=== PATIENT | male | born 1995 | race Caucasian/White ===

== ENCOUNTER 2019-04-23 13:46 | Emergency (ER) | payer OTHER ==
[2019-04-23 14:49] VITALS: BP 122/66
[2019-04-23 15:53] LABS: Influenza A Molecular POSITIVE (Negative)
--- NOTE | 2019-04-23 16:09 | UC ---
FLU HPI - HPI Summary HPI Summary: Patient is a 24yo male presenting with sore throat, body aches, chest congestion , chills x2 days. Patient states he had night sweats last night. Denies sob and difficulty breathing. Denies n/v. Unsure of fevers. Denies taking anything for symptoms. Decreased appetite but drinking fluids more. - History of Current Complaint Chief Complaint: UCRespiratory Stated Complaint: SORE THROAT,FEVER Hx Obtained From: Patient Pain Intensity: 6 Pain Scale Used: 0-10 Numeric - Allergy/Home Medications Allergies/Adverse Reactions: Allergies Allergy/AdvReac Type Severity Reaction Status Date / Time No Known Allergies Allergy Verified 04/23/19 14:49 PMH/Surg Hx/FS Hx/Imm Hx - Surgical History Surgery Procedure, Year, and Place: 4 shoulder surgeries. oral maxillary - Family History Known Family History: Positive: Non-Contributory - Social History Occupation: Student Lives: Dormitory/Roommates Alcohol Use: Weekly Alcohol Amount: 4 times weekly Substance Use Type: None Smoking Status (MU): Never Smoked Tobacco Review of Systems All Other Systems Reviewed And Are Negative: Yes Constitutional: Positive: Chills, Fatigue ENT: Positive: Sore Throat, Sinus Congestion Respiratory: Positive: Cough. Negative: Shortness Of Breath Cardiovascular: Positive: Negative Gastrointestinal: Positive: Negative Musculoskeletal: Positive: Myalgia Neurological: Positive: Negative Physical Exam - Summary Physical Exam Summary: Vital Signs Reviewed: Yes A+Ox3, no distress, well-appearing Eyes: Conjunctiva Clear ENT: Hearing grossly normal TM x 2 clear, moist, uvula midline, no exudate, + pharyngeal erythema Neck: Positive: Supple Respiratory: Positive: No respiratory distress, No accessory muscle use + CTA throughout no w/r Cardiovascular: RRR nl s1, s2 no m/r Musculoskeletal Exam: MCKEE x 4 without difficulty Neurological: Positive: Alert Psychological: Positive: age appropriate behavior Skin: Positive: no rash, no ecchymosis Vital Signs: Initial Vital Signs Temp 99.9 F 04/23/19 14:43 Pulse 72 04/23/19 14:43 Resp 14 04/23/19 14:43 BP 122/66 04/23/19 14:43 Pulse Ox 98 04/23/19 14:43 Lab Results 04/23/19 04/23/19 Range/Units 15:47 15:49 Influenza A (Rapid) Positive A (Negative) Group A Strep Rapid Negative (Negative) Flu Course/Dx - Course Course Of Treatment: Positive rapid flu A. Rapid strep negative. Educated patient on influenza and tamiflu. Patient prefers to take tamiflu. I provided patient with tamiflu prescription and instructed to continue with symptomatic treatment. Instructed to follow up with new or worsening symptoms. Patient voiced understanding and agreed with treatment plan. - Differential Dx/Diagnosis Provider Diagnosis: Influenza A Discharge ED - Sign-Out/Discharge Documenting (check all that apply): Patient Departure All imaging exams completed and their final reports reviewed: No Studies - Discharge Plan Condition: Stable Disposition: HOME Prescriptions: Oseltamivir CAP* [Tamiflu CAP*] 75 mg PO BID #10 cap Patient Education Materials: Influenza (ED) Referrals: [facility] [Outside] - If Needed Additional Instructions: As discussed, you tested positive for influenza today. Take tamiflu as prescribed. You may continue with motrin and tylenol as directed for fever and pain relief. Get plenty of rest and increase your fluid intake. Follow up with the [facility] if symptoms worsen or do not resolve within 5-7 days. - Billing Disposition and Condition Condition: STABLE Disposition: Home
== END 2019-04-23 16:18 | disposition home or self-care (01) ==
LOC: UCEAST 13:46
DX: J10.1 Influenza due to other identified influenza virus with other respiratory manifestations (principal)
CPT/HCPCS: 87651; 99201; G0463

== ENCOUNTER 2019-06-03 20:51 | Emergency (ER) | payer OTHER ==
--- OUTSIDE RECORDS SUMMARY | 2019-06-03 20:56 | XMS REPORT | Continuity of Care Document ---
:1995 Author Organization [facility] Address [address] [place] [address] Phone Care Team Providers Name Role Phone Del Garcia DO Unavailable Unavailable Allergies, Adverse Reactions, Alerts Substance Reaction Status No Known Allergies Active Medications Medication Instructions Dosage Effective Dates (start - stop) Status Comments No Drug Therapy Prescribed Problems Condition Effective Dates (start - Clinical Status Comments stop) BMI,PEDIATRIC 5% - <85% - Other and unspecified injury to - shoulder and upper arm Nausea alone - Myalgia and myositis, unspecified - Unspecified viral infection - FEVER NOS - Acute upper respiratory - infections of unspecified site Routine or child health - check Need for prophylactic vaccination - and inoculation against viralhepatitis Pre-operative examination, - unspecified NEED FOR PROPHYLACTIC VACCINATION - AND INOCULATION, INFLUENZA Encntr for general adult medical exam w/o abnormal findings Encntr for general adult medical exam w/o abnormal findings Acute pharyngitis, unspecified Streptococcal pharyngitis Cough Pneumonia Encounter for screening for respiratory TB Encntr for general adult medical exam w/o abnormal findings Cough Postnasal drip Encntr for routine child health exam w/o abnormal findings ADHD predominantly inattentive type Encounter for general adult medical exam w abnormal findings Adjustment disorder, unspecified Adjustment disorder, unspecified ROUTIN CHILD HEALTH EXAM Back pain Injury Acute pharyngitis Influenza immunization needed Inoculation against viral disease Need for prophylactic vaccination - and inoculation against other specified single bacterial disease Influenza Vaccine Pain in joint involving shoulder Controlled region Routine infant or child health Routine check Routine or child health Routine check Procedures Procedure Date Brief emotional/behav assmt EVOKED AUDITORY TEST LIMITED IMMUNIZATION ADMIN EACH ADD Td vacc no presv 7 yrs+ im IMMUNIZATION ADMIN Menb-4c vacc 2 dose im ROUTINE VENIPUNCTURE SPECIMEN HANDLING OFFICE-LAB PT-FOCUSED HLTH RISK [facility] PREV VISIT EST AGE 18-39 Inspector Assembly Changed The Dx (codes Or Mapping) Inspector Assembly Made Changes To Modifier EVOKED AUDITORY TEST VISUAL ACUITY SCREEN PT-FOCUSED HLTH RISK [facility] PT-FOCUSED HLTH RISK [facility] PREV VISIT, EST, AGE 18-39 SPECIMEN HANDLING STREP A ASSAY W/OPTIC OFFICE/OUTPATIENT VISIT, EST MED SERV, JO ANN/WKEND/HOLIDAY PT-FOCUSED HLTH RISK [facility] PURE TONE HEARING TEST, AIR VISUAL ACUITY SCREEN PT-FOCUSED HLTH RISK [facility] PREV VISIT, EST, AGE 18-39 OFFICE/OUTPATIENT VISIT, EST PURE TONE HEARING TEST, AIR VISUAL ACUITY SCREEN IMMUNIZATION ADMIN HPV 9 PREV VISIT, EST, AGE 18-39 OFFICE/OUTPATIENT VISIT, EST OFFICE/OUTPATIENT VISIT, EST PURE TONE HEARING TEST, AIR VISUAL ACUITY SCREEN IM ADMIN 1ST/ONLY COMPONENT H PAPILLOMA VACC 3 DOSE IM PREV VISIT, EST, AGE 12-17 OFFICE/OUTPATIENT VISIT, EST STREP A ASSAY W/OPTIC OFFICE/OUTPATIENT VISIT, EST IM ADMIN 1ST/ONLY COMPONENT H [place] VACC 3 DOSE IM IM ADMIN 1ST/ONLY COMPONENT FLU VACCINE 4 VALENT NASAL OFFICE/OUTPATIENT VISIT, EST VISUAL ACUITY SCREEN PURE TONE AUDIOMETRY, AIR PREV VISIT, EST, AGE 12-17 MENINGOCOCCAL VACCINE, SC IM ADMIN 1ST/ONLY COMPONENT FLU VACCINE, NASAL IM ADMIN 1ST/ONLY COMPONENT OFFICE/OUTPATIENT VISIT, EST SPECIMEN HANDLING OFFICE/OUTPATIENT VISIT, EST NON-ROUTINE BL DRAW > 3 YRS STREP A ASSAY W/OPTIC 24 HR STREP CULTURE SPECIMEN HANDLING HEP A VACC, PED/ADOL, 2 DOSE IM ADMIN 1ST/ONLY COMPONENT PURE TONE HEARING TEST, AIR VISUAL ACUITY SCREEN PREV VISIT, EST, AGE 12-17 ROUTINE VENIPUNCTURE URINALYSIS, NONAUTO W/SCOPE OFFICE/OUTPATIENT VISIT, EST MED SERV, JO ANN/WKEND/HOLIDAY FLU VACCINE, NASAL IM ADMIN 1ST/ONLY COMPONENT VISUAL ACUITY SCREEN SPECIMEN HANDLING HEP A VACC, PED/ADOL, 2 DOSE IM ADMIN 1ST/ONLY COMPONENT PURE TONE HEARING TEST, AIR URINALYSIS, NONAUTO W/SCOPE PREV VISIT, EST, AGE 12-17 OFFICE CONSULTATION SPECIMEN HANDLING ROUTINE VENIPUNCTURE Results Test Name Date and Time Measure Units Reference Range Abnormal Flag Status Comments No information Advance Directives Directive Yes / No Effective Date File Name No information Encounters Encounter Practice Location Reason(s) Diagnoses Date Provider Providers Description For Visit Copied on Encounter [facility] Del. [facility] [place] 0 [facility], [address], [address] [place], [place], [address] [id number], [place], [place]. [place], tel:43 [place], [address], [address]40857 [place] tel: [phone] [facility]IT [facility] [place] Referring EST AGE 18-39 Children's Pediatrics general Haeyoung. Provider: Health adult 9 [address] [place] [facility], medical exam Evangelina Gaona Flores K, [address] w/o abnormal [address] [place] findings [address], [address] [place], [address], [place], [address], Suite [place], [place]. 102, [place], [address], tel: [place], [place] 544367 [place], [address]. tel: tel: [phone] PREV VISIT, [facility] Encntr for Flores Referring EST, AGE [facility] general Haeyoung. Provider: 18-39 Health adult 8 531 [facility], medical exam Evangelina Ugaldep, [address] w/o abnormal [address] [place] findings [address], [address], [address] [place], [place] [address], [place], [address], [place], [place], [address]. [place], [address], tel: tel: [place] [phone] tel:[phone] OFFICE/OUTPAT [facility] Acute Shurp Referring IENT VISIT, [facility] pharyngitis, Vero. Provider: EST Health unspecifiedS 7 130 [facility] Vero Physicians, treptococcal Street, [place], [address] pharyngitisC [place] [address] [place] oughPneumoni [place], [place], Street, [address] aEncounter [address], [place]. [place] [address], for tel:+ Meri [place], screening 115645 [place], [address]. [place], [address], for tel:+ [place] respiratory [phone] tel: [phone] PREV VISIT, Mentcle [place] Encntr for Shurp Referring EST, AGE [facility] general 1- Vero. Provider: 18-39 Health adult 7 130 [facility], medical exam [facility], [address] w/o abnormal [place] findings [place], [place], [place], [facility] [address], [place]. [place] [address], tel: Meri [place], [id number] [place], [address]. [place], [address], tel: [place] [phone] tel:[phone] OFFICE/OUTPAT [place] CoughPostnas Shurp Referring IENT VISIT, [facility] al drip Vero. Provider: [facility] Health 7 130 [facility]icians, [facility], [address] [place], [place], [place], [address] [address], [place]. [place] [address], tel: Meri [place], 714401 [place], [address]. [place], [address], tel:[phone] tel:[phone] PREV VISIT, [place]cle [place] Encntr for Shurp Referring EST, AGE [facility] routine - Vero. Provider: 18-39 [facility] child health 6 130 [facility]icians, exam w/o [facility], [address] abnormal [place] findingsADHD [place], [place], [address], [address] [facility] [address], [place]. [place] [address], y tel:+42 Meri [place], inattent[place] [phone] [place], [address]. [place], [address], typeEncounte tel: [place] r for [phone] tel: general [phone] adult medical exam w abnormal findings [facility] Referring IENT VISIT, Children's l Pediatrics disorder, Del. 503 Provider : EST Health At [place] unspecified 6 [facility], [address], [place], 40 [facility], [facility], 280 [facility], [facility] [id number], [place] [address], [place]. [place]. [address] [place], tel: [facility], [address], [address]562 Pediatrics [place] , tel: [place], [address] [place], [address]. tel:[phone] OFFICE/OUTPAT [facility] Adjustment [facility] Referring IENT VISIT, Children's l Pediatrics disorder, Del. 503 Provider : EST Health At [place] unspecified 6 [facility] [place], [address], ur, 130 40 [facility], [facility], [facility], [place], [facility] [id number], [place] On [facility] [address], [place]. Meri [place], tel:+43 [place], [address]. [place], [address], [address]177 tel: [place] [phone] tel: [phone] PREV VISIT, [facility] ROUTIN CHILD Audi Referring EST, AGE [facility] HEALTH [place]. 280 Provider: 12-17 Health EXAMPain in 5 [place] [facility], joint [place], [address] [facility] [address] [place]. [address] [place] [address], [facility] regionBMI,PE [facility] [address], DIATRIC 5% - Pediatrics, [place]. 303 [place], <85% [place], [address], [place], [address], Pediatrics [place]. , tel: tel:44 [place], [address] [place], [address]. tel:[phone] OFFICE/OUTPAT [place] Back Mar- Shurp IENT VISIT, [facility] painInjury 9-201 Vero. [facility] 5 130 [facility] Physicians, [place], [address] [place] [facility], [place], [address] [address], [place]. [place], tel:+42 [place], 586917 [place], [address], [place] tel:[phone] OFFICE/OUTPAT [place] Acute Jan-2 Huntley IENT VISIT, [facility] pharyngitis 6-201 [place]. 280 [facility] 4 [facility] 40 [facility]. [facility] 303, [address] [facility] [address], Pediatrics, [place], [place], [address], [place], [address], [place]. tel:[phone] tel:[phone] OFFICE/OUTPAT [place]cle [place] Influenza Nov-0 Shurp IENT VISIT, [facility] immunization 4-201 Vero. [facility] neededInocul 4 130 [facility] Physicians, [facility], [address] against [place], [place], [address] disease [address], [place]. [facility] [address], tel:+42 [place], 796398 [place], [address], [place] tel:[phone] PREV VISIT, Chase [place] Routine May- [facility], [facility] Children[facility] Pediatrics infant or 7-201 12-17 [facility] 4 Physicians, [facility] [address] or [facility] child health [place] dispensary checkNeed [facility] [address], for [place], [place], [address], vaccination [place] and tel:[phone] inoculation [phone] against other specified single bacterial disease [place]cle [place] Influenza Oct-1 [place] [facility] Vaccine 6-[address] [place] [address] 3 [facility] Physicians, [place], [address] [place] [facility] [place], [place], [address] [address], [place]. [place] [address], tel:+42 [place], 796735 [place], [address], [place] tel:[phone] Mentcle [place] Oct-0 [place] [facility] 4-[address] [place] [address] 3 [place] [facility], [place] 40 [facility] [place]. [place] [address], [address] [place] [address], Pediatrics, [place], [place], [address], [place], [address], [place]. tel:[phone] tel:[phone] OFFICE/OUTPAT [place]cle [place] Other and Oct- [place] IENT VISIT, [facility] unspecified 8-201 Shelia. 130 [facility] Health injury to 3 [place] [facility]icians, shoulder and Street, [address] upper [place] [facility] armPre-opera [place], [place], [place] tive [address], [place]. [address], examination, tel:+ [place], unspecified 844543 [place], [address], [place] tel:+ [phone] OFFICE/OUTPAT [place] Nausea Aug-0 Kristen IENT VISIT, [facility] aloneMyalgia 1-201 Afshan. [facility] Health and 3 [address] [place] [facility], myositis, Street, [address] unspecifiedU [place] [facility] nspecified [place], [place], [address] viral [address]. [address], infectionFEV tel:+ [place], [place] N[place] 512137 [place], [address], [place] tel:[phone] PREV VISIT, [facility] Routine Apr- Beniyaminov EST, AGE [facility] or 2-201 Charlene. 4350 12-17 Health child health 3 [place] [facility], checkNeed Naplest [address] for [facility], [facility] prophylactic [place], [place], [address] vaccination [address], [place]. [address], and tel:+82 [place], inoculation 658319 [place], [address], against [place] viralhepatit tel:[phone] is [phone] OFFICE/OUTPAT [place] Acute upper Dec-0 Kristen IENT VISIT, [facility] respiratory 6-201 Afhsan. [facility] Health infections 2 130 [place] [facility], of Street, [address] unspecified [place] site [place], [place], [address] [address]. [address], tel:+42 [place], 368964 [place], [address], [place] tel:[phone] [facility] NEED FOR Dec-0 [place] [facility] PROPHYLACTIC 4-201 Shelia. 130 Health VACCINATION 2 [facility] Physicians, AND [place], [address] [facility] On [place] INFLUENZA [place], [place], [address] [address], [place]. [facility] [address], tel:+42 [place], 953672 [place], [address], [place] tel:[phone] PREV VISIT, [facility] b-1 Flores EST, AGE [facility] 4-201 Haeyoung. 03-06 Health 2 [address] [place] [facility], [address] [place] [address], [address] [place], [facility] [address], [place], [address], [place], [address], tel:+[phone] [place] [phone] tel:[phone] OFFICE [facility] Apr- Flores CONSULTATION [facility] 0-201 Haeyoung. Health 2 [address] [facility], [address] [place] [address], [address] [place], [facility] [address], [place], [address], [place], [address], tel:+[phone] [place] [phone] tel:[phone] Family History Family Member Diagnosis Age At Onset Mother Alive and well Father Alive and well No family history of Coronary artery disease Immunizations Vaccine Date Status Comments meningococcal B, OMV, 2 dose administered Source: New Immunization schedule Record Td (adult) preservative free administered Source: New Immunization Record HPV (9-valent) administered Source: New Immunization Record HPV, quadrivalent administered Source: New Immunization Record Influenza, live, intranasal, administered Source: New Immunization quadrivalent Record HPV, quadrivalent administered Source: New Immunization Record MPSV4 (2-10 yrs and over 55) administered Source: New Immunization Record Influenza virus vaccine, administered Source: New Immunization intranasal Record Hepatitis_A administered Source: New Immunization Record Influenza administered Source: New Immunization Record Hepatitis_A administered Source: New Immunization Record Influenza virus vaccine, administered Source: New Immunization intranasal Record MCV4 administered Source: New Immunization Record Influenza virus vaccine, administered Source: New Immunization intranasal Record Tdap administered Source: New Immunization Record Influenza virus vaccine, administered Source: New Immunization intranasal Record Influenza virus vaccine, administered Source: New Immunization intranasal Record Influenza virus vaccine, administered Source: New Immunization intranasal Record polio, inactivated (IPV) administered Source: New Immunization Record DTaP administered Source: New Immunization Record MMR administered Source: New Immunization Record OPV administered Source: New Immunization Record DTaP administered Source: New Immunization Record MMR administered Source: New Immunization Record Comvax administered Source: New Immunization Record DTaP administered Source: New Immunization Record polio, inactivated (IPV) administered Source: New Immunization Record DTaP administered Source: New Immunization Record Comvax administered Source: New Immunization Record polio, inactivated (IPV) administered Source: New Immunization Record DTaP administered Source: New Immunization Record Comvax administered Source: New Immunization Record Payers Payer name Insurance type Covered green party ID Authorization(s) [employer]ET[employer] PPO CI [id number] A[employer] PPO CI [id number] A[employer] PPO CI [id number] A[employer] PPO CI [id number] [employer] PPO CI [id number] A[employer] PPO CI [id number] Social History Type Description Quantity Date Captured Comments Sex Male Vital Signs Date / Height Weight BMI Pulse Blood Temperature Respiratory Body Head BMI Pulse Inhaled Time: Rate Pressure Rate Surface Circumference percentile Ox Ox Area No information Chief Complaint And Reason For Visit No information Reason For Referral Reason For Referral No information Plan Of Treatment Date Type Action Status Patient Education Sore Throat in Teens: After Your Visit completed Nutrition Recommendation Nutrition education completed History Of Present Illness Encounter Date Complaint History Of Present Illness No information Functional Status Date Functional Assessment No information Medications Administered Medication Instructions Dosage Effective Dates (start - stop) Status Comments No Drug Therapy Prescribed Instructions Date Instruction Additional Information anticipatory guidance Related to Encntr for general givenimmunization given, side effect adult medical exam w/o abnormal discussed, VIS givenlab ordered findings Oral Health Discussed (15-21 years) Related to ROUTIN CHILD HEALTH EXAM Age appropriate safety discussed ( Related to ROUTIN CHILD HEALTH years) EXAM Age appropriate diet discussed ( Related to ROUTIN CHILD HEALTH years) EXAM Age appropriate anticipatory guidance Related to ROUTIN CHILD HEALTH discussed (15- years) EXAM anticipatory guidance givenMen B Related to Encntr for general discussed, will get it later adult medical exam w/o abnormal findings Oral Health Discussed (15-21 years) Related to ROUTIN CHILD HEALTH EXAM Age appropriate safety discussed (15 Related to ROUTIN CHILD HEALTH years) EXAM Age appropriate diet discussed (1521 Related to ROUTIN CHILD HEALTH years) EXAM Age appropriate anticipatory guidance Related to ROUTIN CHILD HEALTH discussed (15-21 years) EXAM call for rapid breathing, or tugging Related to Pneumonia with respiration Rest, increase fluids, monitor for Related to Pneumonia fever. Take medication as directed, and rest Related to Pneumonia Call the office if symptoms worsen Related to Cough Return to office in 48-72hours Related to Encounter for screening for respiratory TB Encourage liquid intake Related to Streptococcal pharyngitis steam, Vicks, chestal for cough Related to Cough symptomatic care Related to Cough replace toothbrushes Related to Streptococcal pharyngitis Can return to school after 24 hours of Related to Streptococcal antibiotics pharyngitis start antibiotic as recom Related to Streptococcal pharyngitis probiotics to be taken 2h apart from Related to Streptococcal antibiotics pharyngitis Safety, healthy life style , including Related to Encntr for general better food choices: - protein with adult medical exam w/o abnormal each meal, - vegetables and fruits findings daily- Sleep hygiene -Daily physical activities at least 15-30min -Self testicular exam taught and encouraged- college, job, priorities.- stress management, relaxation breathing anticipatory guidance Related to Encntr for general adult medical exam w/o abnormal findings Oral Health Discussed (15-21 years) Related to Encntr for general adult medical exam w/o abnormal findings Age appropriate safety discussed ( Related to Encntr for general years) adult medical exam w/o abnormal findings Age appropriate diet discussed ( Related to Encntr for general years) adult medical exam w/o abnormal findings Age appropriate anticipatory guidance Related to Encntr for general discussed (15-21 years) adult medical exam w/o abnormal findings NSnasal wash, flonase Related to Postnasal drip vicks, steam, chestal Related to Cough Monitor clinically. Symptomatic care. Related to Cough Safety, healthy life style , including Related to Encntr for routine better food choices: - protein with child health exam w/o abnormal each meal, - vegetables and fruits findings daily- Sleep hygiene -Daily physical activities at least 15-30min -Self testicular exam taught and encouraged- college, job, priorities.- stress management, relaxation breathing Handout given Related to Encntr for routine child health exam w/o abnormal findings Oral Health Discussed (15-21 years) Related to Encntr for routine child health exam w/o abnormal findings Age appropriate safety discussed ( Related to Encntr for routine years) child health exam w/o abnormal findings Age appropriate diet discussed ( Related to Encntr for routine years) child health exam w/o abnormal findings Age appropriate anticipatory guidance Related to Encntr for routine discussed (15-21 years) child health exam w/o abnormal findings anticipatory guidance Related to Encntr for routine child health exam w/o abnormal findings try aRimind ( bacopa) as directed Related to ADHD predominantly inattentive type start [place] 3 daily Related to ADHD predominantly inattentive type Vanderbiuld forms given to mom Related to ADHD predominantly inattentive type 1. Discussed negotiating withhis Related to Adjustment disorder, girlfriend2. Discussed he is engaged in unspecified a cycle of mutual 1. Make a list of reasons vivian he likes Related to Adjustment disorder, his former girlfriend and what he does unspecified not like aobut her2. Consider informing her he wants to do something they will both enjoy and then end contact until she replies.3. Rebuild his social life. Recommendation to exercise Related to Body Mass Index, pediatric, 5th percentile to less than 85th percentile for age Age appropriate safety discussed (15-21 Related to ROUTIN CHILD HEALTH years) EXAM Age appropriate diet discussed (15- Related to ROUTIN CHILD HEALTH years) EXAM Age appropriate anticipatory guidance Related to ROUTIN CHILD HEALTH discussed (15-21 years) EXAM do exercises Related to Pain in joint involving shoulder region Oral Health Discussed (15-21 years) Related to ROUTIN CHILD HEALTH EXAM will send to ortho if not better Related to Back pain rx for xray given>to do if no Related to Back pain improvement in 2-3 days traumeel cream +traumeel po ( DEC). Related to Injury ffor pain motrin q6-8h x3days,then prn Related to Injury rest Related to Injury change toothbrush Related to Acute pharyngitis return if symptoms worsen. tc will be Related to Acute pharyngitis ready by tuesday latest. rest, fluids tylenol, change Related to Acute pharyngitis toothbrush. family hygiene. Assessments Type Assessment Date No information Goals Health Concern Goal Type Priority Status Date No information Medical Equipment Description Device [place] Device Identifier Effective Dates (start - stop ) Status No information Mental Status Date Cognitive Assessment No information Health Concerns Observation Date No information Concern Status Date No information
[2019-06-03 21:26] VITALS: BP 136/64
--- NOTE | 2019-06-03 21:32 | UC ---
Respiratory Complaint HPI - HPI Summary HPI Summary: 24 y/o male presents to the urgent care c/o productive cough w/ yellowish phlegm for the past 2-3 weeks. Pt reports he was Dx w/ influenza A a month ago, he finished Tamiflu PO and symptoms were improving and then cough returned. Symptoms have worse for the past 2 days w/ sore throat, subjective fever at home , and today not feeling well and having pain in lungs when he coughs. He Denies any travel outside [facility]. - History of Current Complaint Chief Complaint: UCRespiratory Stated Complaint: CONGESTED/COUGH Time Seen by Provider: 06/03/19 21:29 Hx Obtained From: Patient Onset/Duration: Gradual Onset, Lasting Weeks - 2 weeks, Still Present, Worse Since - yesterday Timing: Intermittent Episodes Severity Initially: Mild Severity Currently: Moderate Pain Intensity: 2 - pain in chest when he cough Pain Scale Used: 0-10 Numeric Character: Cough: Productive, Sputum Description: - yellowish Aggravating Factors: Recumbent Position Alleviating Factors: OTC Meds Associated Signs And Symptoms: Positive: Fever - low subjective grade fever, URI. Negative: Chills, Wheezing, Dizziness - Risk Factors Pulmonary Embolism Risk Factors: Negative Cardiac Risk Factors: Negative Pseudomonas Risk Factors: Negative Tuberculosis Risk Factors: Negative - Allergies/Home Medications Allergies/Adverse Reactions: Allergies Allergy/AdvReac Type Severity Reaction Status Date / Time No Known Allergies Allergy Verified 06/03/19 21:20 Home Medications: Home Medications Albuterol HFA INHALER* [Ventolin HFA Inhaler*] 1 - 2 puff INH Q6H PRN #1 mdi [Rx] Azithromycin TAB* [Zithromax TAB (Z-REN) 250 mg #6 tabs] 250 mg PO DAILY #4 tab 06/03/19 [Rx] PMH/Surg Hx/FS Hx/Imm Hx Previously Healthy: Yes - Pt denies PMHX - Surgical History Surgery Procedure, Year, and Place: 4 shoulder surgeries. oral maxillary - Family History Known Family History: Positive: Hypertension, Non-Contributory - Social History Occupation: Student Lives: With Family Alcohol Use: Weekly Alcohol Amount: 4 times weekly Substance Use Type: None Smoking Status (MU): Never Smoked Tobacco - Immunization History Vaccination Up to Date: Yes Review of Systems All Other Systems Reviewed And Are Negative: Yes Constitutional: Positive: Fever - subjective fever at home, Fatigue Skin: Positive: Negative Eyes: Positive: Negative ENT: Positive: Sinus Congestion Respiratory: Positive: Cough - productuctive w/ yellowish phlegm for 1 month, Other - pleuritic chest pain Cardiovascular: Positive: Negative Gastrointestinal: Positive: Negative Genitourinary: Positive: Negative Motor: Positive: Negative Neurovascular: Positive: Negative Musculoskeletal: Positive: Myalgia Neurological/Mental Status: Positive: Negative Psychological: Positive: Negative Is Patient Immunocompromised?: No Physical Exam - Summary Physical Exam Summary: Vital Signs Reviewed: Yes General: well developed, well nourished male sitting in the examining table w/ o any apparent distress Eyes: Positive: Conjunctiva Clear - PERRLA, EOMI, fundi grossly normal ENT: Positive: Normal ENT inspection, Hearing grossly normal, Pharynx normal, Nasal congestion - edematous and erythematous nasal mucosa, Nasal drainage - yellowish drainage, TMs normal. Negative: Tonsillar swelling, Tonsillar exudate Neck: Positive: Supple, Nontender, No Lymphadenopathy Respiratory: no orthopnea or dyspnea. Able to speak in full sentences, no retractions or accessory muscle use, no tripod position, stridor, or head bobbing. Positive breath sounds bilaterally. diffuse scattered rhonchi on b/ L lungs and mild wheezing on the posterior lungs, no crackles or rales. Cardiovascular: Positive: RRR, No Murmur, Pulses Normal, Brisk Capillary Refill Abdomen Description: Positive: Nontender, No Organomegaly, Soft. Negative: CVA Tenderness (R), CVA Tenderness (L) Bowel Sounds: Positive: Present Musculoskeletal Exam: Normal Musculoskeletal: Positive: Strength Intact, ROM Intact, No Edema Neurological Exam: Normal Psychological Exam: Normal Skin Exam: Normal Triage Information Reviewed: Yes Vital Signs: Initial Vital Signs Temp 99.0 F 06/03/19 21:21 Pulse 60 06/03/19 21:21 Resp 18 06/03/19 21:21 BP 136/64 06/03/19 21:21 Pulse Ox 98 06/03/19 21:21 Respiratory Course/Dx - Course Course Of Treatment: Pt is hemodynamically stable, A&OX3, VS: WNL. Pt w/ diffuse scattered rhonchi on b/L lungs and mild wheezing on the posterior lungs, no crackles or rales on examination. O2Sat:98%. RApdi strep: negative, Rapid influenza A&B: negative. Pt given albuterol Treatment to alleviate symptoms. Pt tolerated well treatment and feels better and lungs improved and wheezing resolved. Chest X- ray ordered to r/o pneumonia. Impression: No active Cardiopulmonary disease only peribronchial cuffing as per DR Lopez. She recommends to Tx w/ antibitoics. Patient prescribed Z-ren PO, and Albuterol inhaler. Pt given first dose here at the clinic since pharmacy is closed. Advised to take Delsym or Robitussin PO to alleviate symptoms. At this moment PT is not meeting the criteria for COVIC 19 testing. Pt w/o any fever, SOB and no Hx of travel. Pt was recommended to increase fluid intake. Take medications as recommended. Pt advised to return to the clinic or f/u w/his PCP if symptoms do not improve. All D/C instructions explained. Patient understood and agree w/ plan of care. Pt left clinic hemodynamically stable , A&OX3 - Differential Dx/Diagnosis Differential Diagnosis/HQI/PQRI: Asthma, Bronchitis, Influenza, Laryngitis, Lower Resp Infection, Sinusitis, Other - strep, COVID Provider Diagnosis: Acute bronchitis, Cough Discharge ED - Sign-Out/Discharge Documenting (check all that apply): Patient Departure - D/C home All imaging exams completed and their final reports reviewed: No - Discharge Plan Condition: Stable Disposition: HOME Prescriptions: Albuterol HFA INHALER* [Ventolin HFA Inhaler*] 1 - 2 puff INH Q6H PRN #1 mdi PRN Reason: bronchospasm/wheezing Azithromycin TAB* [Zithromax TAB (Z-REN) 250 mg #6 tabs] 250 mg PO DAILY #4 tab Patient Education Materials: Acute Bronchitis (ED) Referrals: [facility] [place]] - 3 Days Additional Instructions: 1-Please take full course of antibiotic to avoid resistance.First dose given tonight 2-Take Delsym PO which is OTC as directed and use the albuterol inhaler w/ aerochamber to alleviate bronchospasm and wheezing. Increase fluid intake, rest and eat well. 3- If symptoms do not improve or worsen or your develop SOB with fever and severe wheezing please go immediately to the ER further evaluation and treatment. 4- If symptoms are not improving please F/u with your PCP in 3 days for further management. 5- Rapid strep: negative, Rapid influenza A&B: negative 6- Final radiology report will be done tomorrow, you will be notified of any abnormality for further management - Billing Disposition and Condition Condition: STABLE Disposition: Home
[2019-06-03 21:48] LABS: Influenza A Molecular Negative (Negative); Influenza B Molecular Negative (Negative)
[2019-06-03] MEDS ORDERED: Albuterol 2.5 MG/3 ML NEB.SOL* (0.083%) INH ONE (21:52)
[2019-06-03] MEDS ORDERED: Azithromycin TAB* 250 MG PO ONE (21:53)
[2019-06-03] MEDS ORDERED: Acetaminophen TAB* 325 MG PO ONE (21:57)
--- NOTE | 2019-06-04 09:53 | UC ---
- Progress Note Progress Note: Final radiologist reading from June 03, 2019 comes back as no acute disease process. Provider interpretation the same date is the same therefore there is no discrepancy. Course/Dx - Diagnoses Provider Diagnoses: Acute bronchitis, Cough Discharge ED - Sign-Out/Discharge Documenting (check all that apply): Patient Departure All imaging exams completed and their final reports reviewed: Yes - Discharge Plan Condition: Stable Disposition: HOME Prescriptions: Albuterol HFA INHALER* [Ventolin HFA Inhaler*] 1 - 2 puff INH Q6H PRN #1 mdi PRN Reason: bronchospasm/wheezing Azithromycin TAB* [Zithromax TAB (Z-REN) 250 mg #6 tabs] 250 mg PO DAILY #4 tab Patient Education Materials: Acute Bronchitis (ED) [place]errals: [facility] [place] [place]] - 3 Days Additional Instructions: 1-Please take full course of antibiotic to avoid resistance.First dose given tonight 2-Take Delsym PO which is OTC as directed and use the albuterol inhaler w/ aerochamber to alleviate bronchospasm and wheezing. Increase fluid intake, rest and eat well. 3- If symptoms do not improve or worsen or your develop SOB with fever and severe wheezing please go immediately to the ER further evaluation and treatment. 4- If symptoms are not improving please F/u with your PCP in 3 days for further management. 5- Rapid strep: negative, Rapid influenza A&B: negative 6- Final radiology report will be done tomorrow, you will be notified of any abnormality for further management - Billing Disposition and Condition Condition: STABLE Disposition: Home
== END 2019-06-03 22:38 | disposition home or self-care (01) ==
LOC: UCEAST 20:51
DX: J20.9 Acute bronchitis, unspecified (principal); R05 Cough; R53.83 Other fatigue
CPT/HCPCS: 71046; 87651; 99213; A9270-GY; G0463